=== PATIENT | female | born 1980 | race Caucasian/White ===

== ENCOUNTER 2017-01-30 06:55 | Emergency (ER) | payer MEDICAID ==
[~2017-01-30] VITALS: Ht 167.6 cm; Wt 83.0 kg
[2017-01-30 06:57] VITALS: Ht 167.6 cm; Wt 83.0 kg
[2017-01-30] MEDS ORDERED: CEPH-443 PO (07:20)
[2017-01-30 07:21] LABS: URINE BLOOD (Dip) POC Trace-lysed (NEGATIVE)
[2017-01-30] MEDS ORDERED: PHEN-538 PO (07:21)
--- NOTE | 2017-01-30 08:08 | ERD ---
ER Documentation Chief Complaint Date/Time DATE: 01/30/17 TIME: 08:06 Chief Complaint left side back pain x4 days, pain & pressure w/urination HPI 36-year-old female presents to the emergency department complaining of moderate painful urination, suprapubic pressure and left-sided flank pain for the past 4 days. She denies any fevers, hematuria, vomiting diarrhea. She denies taking any medications for this. ROS All systems reviewed and are negative except as per history of present illness. Medications Home Meds Active Scripts Phenazopyridine Hcl* (Pyridium*) 200 Mg Tab, 200 MG PO TID Y for URINARY PAIN, # 15 TAB Prov:ELIZABETH RIBERIO PA-C 01/30/17 Cephalexin* (Keflex*) 500 Mg Capsule, 500 MG PO TID for 7 Days, CAP Prov:ELIZABETH RIBEIRO PA-C 01/30/17 Allergies Allergies: Coded Allergies: No Known Allergy (Unverified , 10/08/14) PMhx/Soc Medical and Surgical Hx: pt denies Medical Hx, pt denies Surgical Hx History of Surgery: Yes (left side nose abcess) Anesthesia Reaction: No Hx Neurological Disorder: No Hx Respiratory Disorders: No Hx Cardiac Disorders: Yes (high cholesterol) Hx Psychiatric Problems: No Hx Miscellaneous Medical Probl: No Hx Alcohol Use: No Hx Substance Use: No Hx Tobacco Use: No Smoking Status: Current every day smoker Physical Exam Vitals Vital Signs Date Time Temp Pulse Resp B/P Pulse Ox O2 Delivery O2 Flow Rate FiO2 01/30/17 06:57 97.7 83 20 140/91 98 Physical Exam Const: [] Head: Atraumatic Eyes: Normal Conjunctiva ENT: Normal External Ears, Nose and Mouth. Neck: Full range of motion..~ No meningismus. Resp: Clear to auscultation bilaterally Cardio: Regular rate and rhythm, no murmurs Abd: Soft, non tender, non distended. Normal bowel sounds Skin: No petechiae or rashes Back: No midline or flank tenderness Ext: No cyanosis, or edema Neur: Awake and alert Psych: Normal Mood and Affect Results 24 hrs Laboratory Tests Test 01/30/17 07:28 Bedside Urine pH (LAB) 7.0 Bedside Urine Protein (LAB) Trace Bedside Urine Glucose (UA) Negative Bedside Urine Ketones (LAB) Negative Bedside Urine Blood Trace-lysed Bedside Urine Nitrite (LAB) Negative Bedside Urine Leukocyte Esterase (L Trace Procedures/MDM 36-year-old female presents to the emergency department with dysuria, differentials include but not limited to urinary tract infection, pelvic prolapse, I have discussed the patient to follow-up with an HIM TECH for further evaluation and treat. Urine dipstick showed trace leukocyte esterase, patient will be empirically treated for urinary tract infection. Urine test was negative. Patient understands and agrees with plan Departure Diagnosis: Primary Impression: UTI (urinary tract infection) Additional Impression: Dysuria Condition: Stable Patient Instructions: Dysuria, Understanding Urinary Tract Infections (UTIs) Referrals: HIM [place] [address] [facility] [address] [place] [address] OFFICE FAX , [facility] [address] [place] [address] [address] [address] [place] [address] DR [place], [facility] [address] [facility], [address], [facility] [address] [address] [facility] [address] [place] [address] [facility] [address] [place] [address] [facility] [id number] - GAVIN CAMPBELL [address] [facility] [address] [address] [address] [facility]. [address], [facility] [address] [address] [facility] [facility] [address] [place], [place] [id number] Additional Instructions: Visite a kramer mdico maana para un EXAMEN.Regrese a estas instalaciones si no se mejora misa esperbamos o misa le dijimos. [place] toda la medicina macy y misa se le indic. Regrese a estas instalaciones si no se mejora misa esperbamos o misa le dijimos. ELIZABETH RIBEIRO PA-C Jan 30, 2017 08:08
== END 2017-01-30 08:33 | disposition home or self-care (01) ==
LOC: FTE 06:55
DX: N39.0 Urinary tract infection, site not specified (principal); F17.210 Nicotine dependence, cigarettes, uncomplicated
CPT/HCPCS: 81003; Z7502; 99283